=== PATIENT | male | born 1985 | race Caucasian/White ===

== ENCOUNTER 2019-05-28 20:16 | Emergency (ER) | payer OTHER ==
--- OUTSIDE RECORDS SUMMARY | 2019-05-28 20:21 | XMS REPORT | Continuity of Care Document ---
:1985 External Reference #:[id number] Author Name Domenico Muller MD Address [address] [place] [address] Care Team Providers Name Role Phone Domenico Muller MD Care Team Information Lead Database Developer Unavailable Domenico Muller MD Primary Care Physician Unavailable Payers Date Identification Numbers Payment Provider Subscriber Policy Number: [id number] [facility] Roberth Lazo PayID: [id number] [address] [address] [place] [address] Family History Date Family Member(s) Observation Comments Mother Angina Social History Type Date Description Comments Sex Unknown Tobacco Use Start: Unknown Nonsmoker ETOH Use Occasional Recreational Drug Use Denies Drug Use Tobacco Use Start: Unknown Nonsmoker Smoking Status Reviewed: 05/22/19 Nonsmoker Allergies, Adverse Reactions, Alerts Active Allergies Reaction Severity Comments Date NKDA 05/22/2019 Inactive Allergies Nkma 09/25/2000 Medications Active Medications SIG Qnty Indications Ordering Provider Date Fluoxetine HCL 1 by mouth 30caps F41.9 Domenico Tomlin 05/22/2019 10mg every day MD Yohana Capsules History Medications No Active Medications Unknown 05/22/2019 - 05/22/2019 Intuniv start with 1 mg 30tabs Isac A. Noellow, 10/24/2009 - 1mg Tablets ER qpm M.D. 05/22/2019 24HR Fexofenadine HCL 1 po qd 30tabs Isac A. Darlow, 10/24/2009 - 180mg M.D. 05/22/2019 Tablets Prior Auth #[id number] Fexofenadine HCL 1 po qd 30tabs Isac A. Darlow, 05/19/2009 - 180mg M.D. 10/24/2009 Tablets prior auth #[id number] Methylphenidate HCL 1 po bid 60tabs 314.01 Isac A. Nighat, 05/18/2009 - 10mg M.D. 05/22/2019 Tablets sixty Zoloft 1 po qd 30units Isac Cohenlow, 02/06/2005 - 100mg M.D. 03/08/2005 Zoloft 1 po qd 30units Isac Smith Nighat, 11/20/2004 - 50mg M.D. 02/06/2005 Clarinex 1 qd Isac AbbyBrittney Disla, 09/07/2004 - 5mg M.D. 02/06/2005 Nasacort Aq 2 sprays q nostril Isac AbbyBrittney Disla, 09/07/2004 - qd M.D. 02/06/2005 Lexapro 1 po qd Isac AbbyBrittney Disla, 09/07/2004 - 10mg M.D. 11/20/2004 Estefanía 1 po qd 30units Kyle F. 07/30/2004 - 180mg Camilo Peraza 09/07/2004 Medrol Dosepack as Directed 1units Kyle FBrittney 07/30/2004 - 4mg Camilo Peraza 09/07/2004 Pepcid 1 po bid 30units Kyle F. 07/30/2004 - 20mg Camilo Peraza 09/07/2004 Zyrtec 1 po qd 30tabs Corby Medina, 05/11/2004 - 10mg Tabs M.D. 07/30/2004 Focalin 1 qam During 30units Isac AbbyBrittney Disla, 03/16/2004 - 5mg School M.D. 09/07/2004 Nasonex 2 sprays each 1units Isac AbbyBrittney Disla, 03/16/2004 - 50mcg nostril qd M.D. 09/07/2004 Tobrex 2 GGT To Affected 5cc Isac AbbyBrittney Disla, 08/18/2003 - Ophth Soln Eye tid X7 Days M.D. 08/26/2003 Clarinex 1 qd prn 30units Isac AbbyBrittney Disla, 07/12/2003 - 5mg Itch/Eczema M.D. 03/07/2004 Zyprexa Once Daily PO SA Isac Disla, 06/10/2003 - 2.5mg Directed M.D. 07/12/2003 Strattera 2 PO qpm 60units Isac Disla, 12/22/2002 - 40mg M.D. 09/07/2004 Physical Therapy Treatment And Isac AbbyBrittney Noelalfonzo, 12/22/2002 - Evaluation Of R M.D. 07/12/2003 Ankle Pain Buspirone 1 PO bid 60units Isac Disla, 03/23/2002 - 10mg M.D. 12/22/2002 Serevent Two Inhalations 20 3Mdi Isac ABrittney Noelalfonzo, 04/25/2001 - Minutes Before M.D. 07/12/2003 Exercise Provigil 1 PO qd 30units Isac Disla, 03/05/2001 - 200mg M.D. 12/22/2002 Elavil 1 QHS 30units Isac MoraBrittney Disla, 03/05/2001 - 25mg M.D. 03/23/2002 Wellbutrin-SR 1 PO qd X 3Days, 60units Isac MoraBrittney Noelalfonzo, 01/29/2001 - 150mg Then bid M.D. 03/05/2001 Elavil 1 PO QHS 30units Isac Disla, 11/07/2000 - 25mg M.D. 01/09/2001 Adderall 20MG Am, 15 MG AT [facility] 09/25/2000 - Noon, 10 MG 4PM, [facility] 09/25/2000 PT Won't Take [facility] AT Noon, 4PM Clonidine 1 QHS 30units Isac MoraBrittney Noelalfonzo, 09/25/2000 - 0.1mg M.D. 11/07/2000 Concerta 1 PO qam 30units Isac MoraBrittney Noelalfonzo, 09/25/2000 - 36mg M.D. 11/07/2000 Medications Administered in Office Medication SIG Qnty Indications Ordering Provider Date TB Intradermal Test Unknown 1985 Injection Immunizations CPT Code Status Date Vaccine Lot # [id number] Given 04/23/2002 DT Immunization 29796 Given 04/07/1999 Hepatitis B Immunization, [place]-19 Years 45216 Given 04/22/1998 Hepatitis B Immunization, [place]-19 Years 11878 Given 02/20/1991 (IPV) Inactive Poliovirus Vaccine 93393 Given 02/20/1991 DTP Immunization 29339 Given 03/14/1988 (IPV) Inactive Poliovirus Vaccine 67013 Given 02/28/1988 DTP Immunization 05454 Given 02/28/1988 (Hib) Hemoplilus Influenza B 40726 Given 04/19/1987 MMR Virus Immunization 14826 Given 1985 MMR Virus Immunization 06690 Given 1985 (IPV) Inactive Poliovirus Vaccine 90946 Given 1985 DTP Immunization 97951 Given 1985 (IPV) Inactive Poliovirus Vaccine 98762 Given 1985 DTP Immunization 17322 Given 1986 (IPV) Inactive Poliovirus Vaccine 93190 Given 1985 DTP Immunization Vital Signs Date Vital Result Comment 05/22/2019 2:07pm BP Systolic 144 mmHg BP Diastolic 88 mmHg Heart Rate 86 /min Body Temperature 97.7 F Respiratory Rate 18 /min Height 72.5 inches 6'0.50" Weight 226.00 lb BMI (Body Mass Index) 30.2 kg/m2 10/24/2009 1:38pm BP Systolic 126 mmHg BP Diastolic 80 mmHg Heart Rate 68 /min Body Temperature 97.6 F Respiratory Rate 16 /min Height 73.5 inches 6'1.50" Weight 200.00 lb BMI (Body Mass Index) 26.0 kg/m2 05/18/2009 9:56am BP Systolic 124 mmHg BP Diastolic 80 mmHg Heart Rate 60 /min Body Temperature 97.6 F Respiratory Rate 12 /min Height 73.5 inches 6'1.50" Weight 206.00 lb BMI (Body Mass Index) 26.8 kg/m2 12/22/2008 10:33am BP Systolic 120 mmHg BP Diastolic 80 mmHg Heart Rate 72 /min Body Temperature 96.8 F Respiratory Rate 18 /min Height 73.5 inches 6'1.50" Weight 68.00 lb BMI (Body Mass Index) 8.8 kg/m2 Right Visual Acuity Distance 20/70? Difficult To Test Left Visual Acuity Distance 20/70? 02/06/2005 11:42am BP Systolic 110 mmHg BP Diastolic 82 mmHg Heart Rate 80 /min Respiratory Rate 16 /min Height 72.75 inches 6'0.75" Weight 194.00 lb BMI (Body Mass Index) 25.8 kg/m2 Body Mass Index Percentile 85 % Weight Percentile 93rd Height Percentile 86 % 11/20/2004 11:06am BP Systolic 112 mmHg BP Diastolic 70 mmHg Heart Rate 68 /min Height 73 inches 6'1" Weight 205.00 lb BMI (Body Mass Index) 27.0 kg/m2 Body Mass Index Percentile 92 % Weight Percentile >95th Height Percentile 88 % 09/07/2004 1:55pm BP Systolic 110 mmHg BP Diastolic 76 mmHg Heart Rate 72 /min Height 73 inches 6'1" Weight 203.00 lb BMI (Body Mass Index) 26.8 kg/m2 Body Mass Index Percentile 92 % Weight Percentile >95th Height Percentile 89 % 05/11/2004 4:29pm BP Systolic 118 mmHg BP Diastolic 80 mmHg Heart Rate 68 /min Body Temperature 97.8 F Weight 194.00 lb Weight Percentile 9403/16/2004 8:13pm BP Systolic 130 mmHg BP Diastolic 80 mmHg Heart Rate 80 /min Respiratory Rate 18 /min Weight 190.00 lb Weight Percentile 03/07/2004 3:12pm Body Temperature 97.6 F Height 72 inches 6'0" Weight 187.00 lb BMI (Body Mass Index) 25.4 kg/m2 Weight Percentile 92nd Height Percentile 82 % 07/12/2003 4:36pm BP Systolic 126 mmHg BP Diastolic 84 mmHg Heart Rate 76 /min Height 71 inches 5'11" Weight 173.00 lb BMI (Body Mass Index) 24.1 kg/m2 Weight Percentile 86th Height Percentile 73 % 06/10/2003 4:09pm BP Systolic 112 mmHg BP Diastolic 70 mmHg Height 71.5 inches 5'11.50" Weight 173.00 lb BMI (Body Mass Index) 23.8 kg/m2 Weight Percentile 86th Height Percentile 79 % 12/22/2002 11:34am BP Systolic 118 mmHg BP Diastolic 86 mmHg Heart Rate 80 /min Weight 160.00 lb Weight Percentile 81st 04/23/2002 9:50am BP Systolic 110 mmHg BP Diastolic 70 mmHg Heart Rate 78 /min Height 70.75 inches 5'10.75" Weight 160.00 lb BMI (Body Mass Index) 23.0 kg/m2 Weight Percentile 81st Height Percentile 79 % 04/25/2001 2:49pm BP Systolic 110 mmHg BP Diastolic 70 mmHg Heart Rate 64 /min Height 70 inches 5'10" Weight 154.00 lb BMI (Body Mass Index) 22.1 kg/m2 Head Percentile 5 % Height Percentile 88 % Right Visual Acuity Distance 20/20 Left Visual Acuity Distance 20/20 03/05/2001 2:33pm BP Systolic 120 mmHg BP Diastolic 80 mmHg Heart Rate 88 /min Weight 155.00 lb 09/25/2000 4:12pm BP Systolic 120 mmHg Ra, SM Cuff BP Diastolic 74 mmHg Ra, SM Cuff Heart Rate 68 /min Reg Weight 132.00 lb Results Test Date Facility Test Result H/L Range Note Complete Blood Count 12/22/2008 [facility]) WBC 4.8 x10^3/uL 3.6 -9.6 1 Gran# 3.3 x10^3/uL 1.5-7.2 Gran% 68.7 % 42.2-75.2 HCT 49 % 36-50 HGB 16.7 g/dL 12.1-17.2 Lymph# 1.3 x10^3/uL 0.7-4.9 Lymph% 27.0 % 20.5-51.1 MCH 30.5 pg 27.6-33.3 MCV 88.9 fL 82.2-97.4 MCHC 34.3 g/dL 33.0-35.5 Mo# 0.2 x10^3/uL 0.1-0.9 Mo% 4.3 % 1.7-9.3 MPV 8.0 fL 7.4-10.4 PLT 251 x10^3/uL 150-400 RBC 5.48 x10^6/uL 3.90-5.70 RDW 12.2 % 11.6-13.7 Comprehensive Metabolic 12/22/2008 [facility]) Albumin 4.4 g/dL 3.8-5.5 Prof Alk. Phos. 77 U/L 22-95 Alt (SGPT) 18 U/L 10-40 Ast (Sgot) 16 U/L 5-34 BUN 14 mg/dL 6-26 Calcium 9.5 mg/dL 8.6-10.2 Chloride 105 mEq/L 94-112 Creatinine 0.9 mg/dL 0.6-1.4 Carbon Dioxide 26 mEq/L 21-32 Glucose 97 mg/dL 70-105 Sodium 144 mEq/L 134-149 Total Bilirubin 0.9 mg/dL 0.2-1.3 Total Protein 7.0 g/dL 6.3-8.1 Potassium 4.3 mEq/L 3.6-5.5 Globulin 2.6 g/dL 2.0-4.8 A/G Ratio 1.7 Calc 0.6-2.2 BUN/Creat Ratio 15.2 Calc 8.0-36.0 Laboratory test 12/22/2008 [facility] Christy(fma) TSH 3.03 mIU/L 0.50-6.00 finding Laboratory test 12/22/2008 [facility] Serotonin, 126 ng/mL 21-321 finding [address] [place] [address] [phone] 1 FASTING Encounters Type Date Location Provider Dx Diagnosis Office Visit 10/24/2009 [facility] Isac Disla 314.01 Attention Deficit 1:50p M.D. Disorder W/ Hyperactivity 477.9 Rhinitis Allergic Cause Unspec Office Visit 05/18/2009 9:40a [facility] Isac Smith 314.01 Attention Deficit Camilo Disla Disorder W/ Hyperactivity Office Visit 12/22/2008 10:20a [facility] Isac Smith 314.01 Attention Deficit Camilo Disla Disorder W/ Hyperactivity Office Visit 02/06/2005 11:30a [facility] Isac Smith 314.01 Attention Deficit Camilo Disla Disorder W/ Hyperactivity 296.80 Bipolar Disorder NOS Office Visit 11/20/2004 11:00a [facility] Isac Smith 314.01 Attention Deficit Camilo Disla Disorder W/ Hyperactivity Office Visit 08/11/2004 3:40p [facility] Isac Smith 314.01 Attention Deficit Camilo Disla Disorder W/ Hyperactivity 313.81 Opposition Defiant Disorder 477.8 Rhinitis Allergic Due To Other Allergen Office Visit 05/11/2004 4:10p [facility] Office Corby Guo 477.9 Rhinitis Allergic Camilo Medina Cause Unspec Office Visit 03/16/2004 8:00p Main Office Isac Smith 314.01 Attention Deficit Camilo Disla Disorder W/ Hyperactivity 313.81 Opposition Defiant Disorder Office Visit 03/07/2004 3:00p Main Office Corby Medina 477.9 Rhinitis Allergic MBrittneyDBrittney Cause Unspec Office Visit 07/12/2003 4:20p Main Office Isac Disla 313.81 Opposition Defiant M.D. Disorder 314.01 Attention Deficit Disorder W/ Hyperactivity V70.5 Examination Health Of Defined Subpopulations Office Visit 06/10/2003 4:00p Main Office sIac Smith 314.01 Anna Marie Disla M.D. Disorder W/ Hyperactivity 313.81 Opposition Defiant Disorder Office Visit 12/22/2002 11:20a Main Office Isac Smith 314.01 Anna Marie Disla M.D. Disorder W/ Hyperactivity 313.81 Opposition Defiant Disorder Office Visit 04/23/2002 9:40a [facility] Office Isac Disla M.D. Office Visit 03/23/2002 11:20a [facility] Office Isac Disla M.D. Office Visit 04/25/2001 2:40p [facility] Isac Disla M.D. Office Visit 03/05/2001 3:20p [facility] Isac Disla M.D. Office Visit 03/05/2001 2:20p [facility] Isac Disla M.D. Office Visit 09/25/2000 4:00p [facility] Isac Disla M.D. Plan of Treatment Future Appointment(s):06/15/2019 1:30 pm - Domenico Muller MD at Main Lsqnrz6406/24/2019 1:20 pm - Domenico Muller MD at Main Duqukh5805/22/2019 - Domenico Muller MDZ00.01 Encounter for general adult medical examination with abnormaNew Labs:CBC Electronic-ALL [facility], Ordered: 05/22/19Comp Metabolic-ALL [facility], Ordered: 05/22/19Lipid Panel-[facility], Ordered: 05/22/19HIV Self Referred, Ordered: 05/22/19RPR w/ reflex T.P. quant, Ordered: 05/22/19#GC/Chlam By Amplified Dna-Ua, Ordered: 05/22/19Uric Acid, Serum, Ordered: 05/22/19Immunizations/Injections:Tdap Tetanus, W StmrxrtzkN13.9 Anxiety disorder, unspecifiedNew Medication:Fluoxetine HCL 10 mg - 1 by mouth every dayFollow up:4-6 weeks.M79.671 Pain in right footAllComments:Medication Management Patient Understands medications he's taking? Yes No Are there Barriersto Adherence? Yes No Has the patient been asked about herbal supplements and therapies, and OTC meds? Yes No
[2019-05-28 20:24] VITALS: BP 137/103
--- NOTE | 2019-05-28 21:03 | UC ---
Lower Extremity/Ankle HPI - HPI Summary HPI Summary: 34 yo male with right great toe pain and swelling x 1 week no trauma - History of Current Complaint Chief Complaint: UCLowerExtremity Stated Complaint: FOOT PAIN Time Seen by Provider: 05/28/19 20:22 Hx Obtained From: Patient Onset/Duration: Gradual Onset, Lasting Days Severity Initially: Mild Severity Currently: Severe Pain Intensity: 8 Pain Scale Used: 0-10 Numeric Aggravating Factor(s): Standing, Ambulation Alleviating Factor(s): Rest Able to Bear Weight: Yes Feet (Multiple View): 1 - red/swollen/tender - Allergies/Home Medications Allergies/Adverse Reactions: Allergies Allergy/AdvReac Type Severity Reaction Status Date / Time No Known Allergies Allergy Verified 05/28/19 20:23 Home Medications: Home Medications Ibuprofen TAB* [Advil TAB*] 400 mg PO PRN 05/28/19 [History] PMH/Surg Hx/FS Hx/Imm Hx Previously Healthy: Yes - Family History Known Family History: Positive: Cardiac Disease, Hypertension - Social History Alcohol Use: Occasionally Substance Use Type: None Smoking Status (MU): Never Smoked Tobacco Review of Systems All Other Systems Reviewed And Are Negative: Yes Constitutional: Positive: Negative Skin: Positive: Negative Eyes: Positive: Negative ENT: Positive: Negative Respiratory: Positive: Negative Cardiovascular: Positive: Negative Gastrointestinal: Positive: Negative Genitourinary: Positive: Negative Motor: Positive: Negative Musculoskeletal: Positive: Arthralgia - right great toe Physical Exam Triage Information Reviewed: Yes Appearance: Well-Appearing, No Pain Distress, Well-Nourished Vital Signs: Initial Vital Signs Temp 96 F 05/28/19 20:20 Pulse 90 05/28/19 20:20 Resp 16 05/28/19 20:20 BP 137/103 05/28/19 20:20 Pulse Ox 97 05/28/19 20:20 Vital Signs Reviewed: Yes Eyes: Positive: Conjunctiva Clear ENT: Positive: Hearing grossly normal. Negative: Nasal congestion, Nasal drainage, Trismus, Hoarse voice Neck: Positive: Supple Respiratory: Positive: Lungs clear, Normal breath sounds, No respiratory distress Cardiovascular: Positive: RRR, No Murmur Musculoskeletal: Positive: Other: - see image Neurological: Positive: Alert Skin: Negative: Rashes Diagnostics - Radiology No standard instances Radiology Interpretation Completed By: ED Physician Summary of Radiographic Findings: no fx noted Lower Extremity Course/Dx - Differential Dx/Diagnosis Provider Diagnosis: Gouty arthritis of right great toe Discharge - Sign-Out/Discharge Documenting (check all that apply): Patient Departure All imaging exams completed and their final reports reviewed: No - Discharge Plan Condition: Stable Disposition: HOME Patient Education Materials: Gout (ED), Low Purine Diet (ED), Post Surgical Shoe (ED) Referrals: [facility] [place] [facility] REFERR[facility] [Outside] Additional Instructions: I suggest you take either the prednisone (you can take aleve with this) or the indocin (don't take with advil or aleve) recheck in 3-4 days if not better pot op shoe - Billing Disposition and Condition Condition: STABLE Disposition: Home
--- NOTE | 2019-05-29 07:48 | UC ---
- Progress Note Progress Note: Reviewed the x-ray results, no changed to initial management. - EKG/XRAY/CT XRAY: foot Course/Dx - Diagnoses Provider Diagnoses: Gouty arthritis of right great toe Discharge - Sign-Out/Discharge Documenting (check all that apply): Post-Discharge Follow Up All imaging exams completed and their final reports reviewed: Yes - Discharge Plan Condition: Stable Disposition: HOME Prescriptions: Indomethacin CAP* [Indocin CAP*] 50 mg PO TID PRN #9 cap PRN Reason: Pain predniSONE [Prednisone 20 MG TAB] 60 mg PO DAILY #9 tab Patient Education Materials: Low Purine Diet (ED), Gout (ED), Post Surgical Shoe (ED) Referrals: [facility] [place] [facility]FERR[facility] [Outside] Additional Instructions: I suggest you take either the prednisone (you can take aleve with this) or the indocin (don't take with advil or aleve) recheck in 3-4 days if not better pot op shoe - Billing Disposition and Condition Condition: STABLE Disposition: Home
== END 2019-05-28 21:10 | disposition home or self-care (01) ==
LOC: UCEAST 20:16
DX: M10.9 Gout, unspecified (principal)
CPT/HCPCS: 99203; G0463

== ENCOUNTER 2020-01-07 14:53 | Emergency (ER) | payer OTHER ==
[2020-01-07 15:06] VITALS: BP 0/0
--- NOTE | 2020-01-07 16:31 | UC ---
Throat Pain/Nasal Wes HPI - HPI Summary HPI Summary: 34-year-old male comes in with a chief complaint of runny nose sore throat and postnasal drip right ear pain. Symptoms have been going on for about a week. Rhinorrhea is green. Has been using [id number] preparations with some relief but overall he is not improving. No complaining shortness of breath. - History of Current Complaint Chief Complaint: UCGeneralIllness Stated Complaint: SORE THROAT Time Seen by Provider: 01/07/20 16:23 Pain Intensity: 3 - Allergies/Home Medications Allergies/Adverse Reactions: Allergies Allergy/AdvReac Type Severity Reaction Status Date / Time No Known Allergies Allergy Verified 05/28/19 20:23 Home Medications: Home Medications Amoxicillin PO (*) [Amoxicillin 875 MG (*)] 875 mg PO BID #20 tab 01/07/20 [Rx] PMH/Surg Hx/FS Hx/Imm Hx Previously Healthy: Yes - Surgical History Surgical History: None - Family History Known Family History: Positive: Cardiac Disease, Hypertension - Social History Alcohol Use: None Substance Use Type: None Smoking Status (MU): Never Smoked Tobacco Review of Systems All Other Systems Reviewed And Are Negative: Yes Constitutional: Positive: Other - SEE HPI Skin: Positive: Negative Eyes: Positive: Negative ENT: Positive: Sore Throat, Ear Ache, Nasal Discharge, Sinus Congestion Respiratory: Positive: Negative Cardiovascular: Positive: Negative Gastrointestinal: Positive: Negative Motor: Positive: Negative Neurovascular: Positive: Negative Musculoskeletal: Positive: Negative Neurological/Mental Status: Positive: Negative Psychological: Positive: Negative Is Patient Immunocompromised?: No Physical Exam Triage Information Reviewed: Yes Appearance: Well-Appearing, No Pain Distress, Well-Nourished Vital Signs: Initial Vital Signs Temp 98.0 F 01/07/20 15:00 Pulse 89 01/07/20 15:00 Resp 18 01/07/20 15:00 BP 0/0 01/07/20 15:00 Pulse Ox 96 01/07/20 15:00 Vital Signs Reviewed: Yes Eye Exam: Normal Eyes: Positive: Conjunctiva Clear ENT: Positive: Pharyngeal erythema, Nasal congestion, Nasal drainage, TM red - RT Neck: Positive: Supple Respiratory: Positive: Lungs clear, Normal breath sounds, No respiratory distress Cardiovascular: Positive: RRR Musculoskeletal: Positive: Strength Intact, ROM Intact Neurological: Positive: Alert Psychological: Positive: Age Appropriate Behavior Skin Exam: Normal Throat Pain/Nasal Course/Dx - Course Course Of Treatment: DISCUSSED VIRAL VERSES BACTERIAL INFECTIONS AND THE ROLE OF ANTIBIOTICS. PATIENT PREFERS TO BE ON ANTIBIOTICS AT THIS TIME. - Differential Dx/Diagnosis Provider Diagnosis: Sinusitis Discharge ED - Sign-Out/Discharge Documenting (check all that apply): Patient Departure All imaging exams completed and their final reports reviewed: No Studies - Discharge Plan Condition: Stable Disposition: HOME Prescriptions: Amoxicillin PO (*) [Amoxicillin 875 MG (*)] 875 mg PO BID #20 tab Patient Education Materials: Sinusitis (ED) Referrals: Domenico Muller MD [Primary Care Provider] - Additional Instructions: FOLLOW UP WITH YOUR DOCTOR IF NOT COMPLETELY IMPROVED. GET REEVALUATED SOONER IF NOT IMPROVED OR WORSE OR ANY QUESTIONS OR CONCERNS. - Billing Disposition and Condition Condition: STABLE Disposition: Home
== END 2020-01-07 16:42 | disposition home or self-care (01) ==
LOC: UCEAST 14:53
DX: J32.9 Chronic sinusitis, unspecified (principal); J02.9 Acute pharyngitis, unspecified
CPT/HCPCS: 99212; G0463